=== PATIENT | male | born 1945 | race Asian ===

== ENCOUNTER → 2016-11-24 | Outpatient (CLI) | payer MEDICARE, OTHER | END | disposition home or self-care (01) | LOC: RADMN 09:14 | PROVIDERS: ATTEND Physical Medicine & Rehabilitation Spinal Cord Injury Medicine | DX: M54.17 Radiculopathy, lumbosacral region (principal); N52.9 Male erectile dysfunction, unspecified | CPT/HCPCS: 72148 ==

== ENCOUNTER → 2017-06-09 | Outpatient (CLI) | payer MEDICARE, OTHER ==
[~2017-06-09] MED LIST: ADV500 IH; ALBUTEROL SULFA IH; AMLO-511 PO; ASPI81 PO; ATOR10TA84 PO; FINA5TAB41 PO; FLUT16H NASAL; ISON300 PO; JANUMET PO; METO-558 PO; MONT10TA21 PO; PYRI50 PO; SILD25 PO; TAMS0.4C32 PO; TELM40 PO; TIOT185 IH; [UNRECOGNIZED DRUG - CODE] TD
== END | disposition home or self-care (01) ==
LOC: RADPV 09:37
PROVIDERS: ATTEND Internal Medicine
DX: J98.11 Atelectasis (principal); I70.0 Atherosclerosis of aorta; M47.814 Spondylosis without myelopathy or radiculopathy, thoracic region
CPT/HCPCS: 71020

== ENCOUNTER → 2017-06-15 | Outpatient (CLI) | payer MEDICARE, OTHER | END | disposition home or self-care (01) | LOC: RADPV 08:00 | PROVIDERS: ATTEND Internal Medicine | DX: I51.7 Cardiomegaly (principal) | CPT/HCPCS: 93306 ==

== ENCOUNTER → 2017-06-24 | Outpatient (CLI) | payer MEDICARE, OTHER | END | disposition home or self-care (01) | LOC: LABPV 12:22 | PROVIDERS: ATTEND Internal Medicine | DX: R91.8 Other nonspecific abnormal finding of lung field (principal); I70.0 Atherosclerosis of aorta | CPT/HCPCS: 71020 ==

== ENCOUNTER 2017-09-02 08:18 | Day surgery (SDC) | payer MEDICARE, OTHER ==
[~2017-09-02] VITALS: Ht 167.6 cm; Wt 77.7 kg
[~2017-09-02 08:18] MED LIST changes: -ALBUTEROL SULFA IH; +COMBISP IH; +FLUT15.88 NASAL; -FLUT16H NASAL; -ISON300 PO; -JANUMET PO; +OMEP20 PO; -PYRI50 PO; +SITA1TAB6 PO; +SODI1KIT4 NASAL
[2017-09-02] MEDS ORDERED: HYALURONATE SOD/CHONDROITIN SOD 0.5 ML VIAL IO ONE (08:19)
[2017-09-02] MEDS ORDERED: DEXAMETHASONE SOD PHOS 4 MG/ML VIAL IVP ONE (08:19)
[2017-09-02] MEDS ORDERED: BALANCED SALT 15 ML OPHTHALMIC IRRIG.SOLN OS ONE (08:19)
[2017-09-02] MEDS ORDERED: 0.9% SODIUM CHLORIDE 10 ML VIAL IVP ONE (08:19)
[2017-09-02] MEDS ORDERED: POVIDONE-IODINE 10% 15 ML SOLUTION UD TP ONE (08:19)
[2017-09-02] MEDS ORDERED: MIDAZOLAM HCL 2 MG/2 ML VIAL IVP ONE (08:19)
[2017-09-02] MEDS ORDERED: FentaNYL CITRATE-PF 100 MCG/2 ML VIAL IVP ONE (08:19)
[2017-09-02] MEDS ORDERED: TETRACAINE HCL VISCOUS 0.5% 5 ML OPHTHALMIC SOLUTION OS ONE (08:19)
[2017-09-02] MEDS ORDERED: ACETYLCHOLINE CHLORIDE 1 EA INTRAOCULAR SOLUTION KIT IO ONE (08:19)
[2017-09-02] MEDS ORDERED: MOXIFLOXACIN HCL 0.5% 3 ML OPHTHALMIC SOLUTION ONE (08:37)
[2017-09-02] MEDS ORDERED: RINGERS SOLUTION,LACTATED 500 ML IV ONE ×2 (08:37→09:00)
[2017-09-02] MEDS ORDERED: TROPICAMIDE 1% 2 ML OPHTHALMIC SOLUTION ONE (08:37)
[2017-09-02] MEDS ORDERED: PHENYLEPHRINE HCL 2.5% 2 ML OPHTHALMIC SOLUTION ONE (08:37)
[2017-09-02] MEDS ORDERED: KETOROLAC TROMETHAMINE 0.5% 5 ML OPHTHALMIC SOLUTION ONE (08:37)
[2017-09-02] MEDS ORDERED: DICLOFENAC SODIUM 0.1% 2.5 ML OPHTHALMIC SOLUTION OD ONE (09:00)
[2017-09-02] MEDS ORDERED: MOXIFLOXACIN HCL 0.5% 3 ML OPHTHALMIC SOLUTION OD ONE (09:00)
[2017-09-02] MEDS ORDERED: 0.9% SODIUM CHLORIDE 10 ML SYRINGE IVP PRN (09:00)
[2017-09-02] MEDS ORDERED: KETOROLAC TROMETHAMINE 0.5% 5 ML OPHTHALMIC SOLUTION OD ONE (09:00)
[2017-09-02] MEDS: PHENYLEPHRINE HCL 2.5% 2 ML OPHTHALMIC SOLUTION OD SCH ×2 (09:39→09:44)
[2017-09-02] MEDS: TROPICAMIDE 1% 2 ML OPHTHALMIC SOLUTION OD SCH ×2 (09:39→09:44)
[2017-09-02 09:52] LABS: GLUCOMETER DEV NAME(LOC) SDS 5; GLUCOSE,POINT OF CARE 110 MG/DL (70-110)
== END 2017-09-02 13:15 | disposition home or self-care (01) ==
LOC: SURGERY 08:18
PROVIDERS: ATTEND Specialist
DX: E11.36 Type 2 diabetes mellitus with diabetic cataract (principal); H25.011 Cortical age-related cataract, right eye; M19.90 Unspecified osteoarthritis, unspecified site; F41.9 Anxiety disorder, unspecified; J44.9 Chronic obstructive pulmonary disease, unspecified; E78.00 Pure hypercholesterolemia, unspecified; N40.0 Benign prostatic hyperplasia without lower urinary tract symptoms; G47.33 Obstructive sleep apnea (adult) (pediatric); I10 Essential (primary) hypertension; Z79.84 Long term (current) use of oral hypoglycemic drugs; Z79.899 Other long term (current) drug therapy; Z88.8 Allergy status to other drugs, medicaments and biological substances; Z87.891 Personal history of nicotine dependence; Z98.42 Cataract extraction status, left eye
CPT/HCPCS: 66984; 82962; 93005; C1780; J1100; J2250; J3010; J7120

== ENCOUNTER → 2018-03-10 | Outpatient (CLI) | payer MEDICARE, OTHER | END | disposition home or self-care (01) | LOC: RADPV 09:29 | PROVIDERS: ATTEND Internal Medicine | DX: M47.894 Other spondylosis, thoracic region (principal); I10 Essential (primary) hypertension; E11.36 Type 2 diabetes mellitus with diabetic cataract; E78.00 Pure hypercholesterolemia, unspecified; J44.9 Chronic obstructive pulmonary disease, unspecified ==

== ENCOUNTER 2018-11-08 12:44 | Emergency (ER) | payer MEDICARE, OTHER ==
[~2018-11-08] VITALS: Ht 167.6 cm; Wt 75.9 kg
[2018-11-08] MEDS ORDERED: LIDOCAINE/PF 1% 5 ML VIAL INJ ONE (13:30)
[2018-11-08] MEDS ORDERED: CEPHALEXIN MONOHYDRATE 500 MG CAPSULE PO ONE (13:30)
[2018-11-08] MEDS ORDERED: BACITRACIN 0.9 GM PACKET OINTMENT TP ONE (13:30)
[2018-11-08] MEDS ORDERED: PERTUSS(ACELL),DIPH,TET VAC/PF 0.5 ML VIAL IM ONE (13:30)
[2018-11-08 14:20] VITALS: BP 138/76
== END 2018-11-08 14:31 | disposition home or self-care (01) ==
LOC: EMS 12:44
DX: S81.811A Laceration without foreign body, right lower leg, initial encounter (principal); I10 Essential (primary) hypertension; E78.00 Pure hypercholesterolemia, unspecified; E11.9 Type 2 diabetes mellitus without complications; J45.909 Unspecified asthma, uncomplicated; Z88.8 Allergy status to other drugs, medicaments and biological substances; Z79.899 Other long term (current) drug therapy; Z79.82 Long term (current) use of aspirin; W26.0XXA Contact with knife, initial encounter; Y93.89 Activity, other specified; Y92.89 Other specified places as the place of occurrence of the external cause; Y99.8 Other external cause status
CPT/HCPCS: 12002; 82962; 90471; 90715; 99283; J3490

== ENCOUNTER → 2018-11-24 | Outpatient (CLI) | payer MEDICARE, OTHER ==
[~2018-11-24] MED LIST changes: -ADV500 IH; -TIOT185 IH; -[UNRECOGNIZED DRUG - CODE] TD
== END | disposition home or self-care (01) ==
LOC: RADPV 07:59
PROVIDERS: ATTEND Internal Medicine Pulmonary Disease
DX: I70.0 Atherosclerosis of aorta (principal); J44.1 Chronic obstructive pulmonary disease with (acute) exacerbation

== ENCOUNTER → 2022-06-10 | Outpatient (CLI) | payer MEDICARE, OTHER ==
[~2022-06-10] MED LIST changes: +AMLO-257 PO; -AMLO-511 PO; +ASPI-1450 PO; -ASPI81 PO; +ATOR10TA PO; -ATOR10TA84 PO; +FINA-27 PO; -FINA5TAB41 PO; +MONT-35 PO; -MONT10TA21 PO; +TAMS-13 PO; -TAMS0.4C32 PO
== END | disposition home or self-care (01) ==
LOC: RADMN 11:10
PROVIDERS: ATTEND Internal Medicine Pulmonary Disease
DX: J44.1 Chronic obstructive pulmonary disease with (acute) exacerbation (principal); M47.814 Spondylosis without myelopathy or radiculopathy, thoracic region; I70.0 Atherosclerosis of aorta
CPT/HCPCS: 71046

== ENCOUNTER → 2023-06-22 | Outpatient (CLI) | payer MEDICARE, OTHER ==
[~2023-06-22] MED LIST changes: -TAMS-13 PO; +TAMS0.4C94 PO
== END | disposition home or self-care (01) ==
LOC: RADMN 11:16
PROVIDERS: ATTEND Internal Medicine
DX: M17.11 Unilateral primary osteoarthritis, right knee (principal)
CPT/HCPCS: 73562-TC

== ENCOUNTER → 2023-07-09 | Outpatient (CLI) | payer MEDICARE, OTHER | END | disposition home or self-care (01) | LOC: RADMN 08:20 | PROVIDERS: ATTEND Internal Medicine | DX: S83.241A Other tear of medial meniscus, current injury, right knee, initial encounter (principal); S83.8X1A Sprain of other specified parts of right knee, initial encounter; M65.261 Calcific tendinitis, right lower leg; X58.XXXA Exposure to other specified factors, initial encounter; Y93.89 Activity, other specified; Y92.89 Other specified places as the place of occurrence of the external cause; Y99.8 Other external cause status | CPT/HCPCS: 73721 ==